=== PATIENT | male | born 1980 | race Caucasian/White ===

== ENCOUNTER 2018-09-11 22:50 | Emergency (ER) | payer MEDICAID, OTHER ==
[~2018-09-11] VITALS: Ht 172.7 cm; Wt 85.0 kg
[~2018-09-11 22:50] MED LIST: ACET500C5 PO; AMOX500C2 PO; IBUP800T48 PO
[2018-09-11 22:59] VITALS: Ht 172.7 cm; Wt 85.0 kg
[2018-09-11] MEDS ORDERED: SOD CHLORIDE 0.9% 1,000 ML IV STA (23:22)
[2018-09-12 01:40] VITALS: BP 126/86; PULSE 92; RESP 19
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
== END 2018-09-12 01:45 | disposition home or self-care (01) ==
LOC: E/R 22:50
DX: S01.81XA Laceration without foreign body of other part of head, initial encounter (principal); F17.210 Nicotine dependence, cigarettes, uncomplicated; S60.419A Abrasion of unspecified finger, initial encounter; R09.89 Other specified symptoms and signs involving the circulatory and respiratory systems; V18.4XXA Pedal cycle driver injured in noncollision transport accident in traffic accident, initial encounter
CPT/HCPCS: 12013; 70450; 70480; 71046; 99284; J7030

== ENCOUNTER 2018-09-28 19:15 | Emergency (ER) | payer SELFPAY ==
[~2018-09-28] VITALS: Ht 175.3 cm; Wt 59.1 kg
[2018-09-28 19:18] VITALS: Ht 175.3 cm; Wt 59.1 kg
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
[2018-09-28 21:34] VITALS: BP 120/70; PULSE 108; RESP 16
== END 2018-09-28 21:33 | disposition home or self-care (01) ==
LOC: E/R 19:15
DX: F10.129 Alcohol abuse with intoxication, unspecified (principal); F17.210 Nicotine dependence, cigarettes, uncomplicated
CPT/HCPCS: 99283